=== PATIENT | female | born 1965 | race American Indian/Alaskan Native ===

== ENCOUNTER 2017-10-23 18:59 | Emergency (ER) | payer OTHER ==
[2017-10-23 19:39] VITALS: BP 123/81
[2017-10-23] MEDS ORDERED: TYLENOL PO ONE (19:51)
--- NOTE | 2017-10-24 22:17 | XRay Report ---
FINAL REPORT EXAM: XR FOOT 2V LT HISTORY: LEFT FOOT PAIN AND FALL TECHNIQUE: 2 views Left foot PRIORS: None. FINDINGS: No fracture or dislocation identified. Joint spaces are within normal limits. No erosive bony change identified. No bony lesions are identified. IMPRESSION: Negative foot series
--- NOTE | 2017-10-24 22:19 | XRay Report ---
FINAL REPORT EXAM: XR ANKLE 2V LT HISTORY: LEFT ANKLE PAIN AND FALL TECHNIQUE: 2 is views left ankle PRIORS: None. FINDINGS: No fracture is identified. No dislocation seen. Ankle mortise is intact no evidence of joint space widening. No erosive or degenerative changes are identified. No evidence of joint effusion. IMPRESSION: Negative ankle series
== END 2017-10-24 06:40 | disposition left against medical advice (07) ==
LOC: ED 18:59
DX: M79.672 Pain in left foot (principal); Z53.21 Procedure and treatment not carried out due to patient leaving prior to being seen by health care provider